=== PATIENT | male | born 1950 | race Caucasian/White ===

== ENCOUNTER 2016-07-15 18:15 | Emergency (ER) | payer OTHER, MEDICARE ==
[2016-07-15] MEDS ORDERED: ASPIRIN 81 MG CHEWABLE CTB ONE (18:17)
[2016-07-15] MEDS ORDERED: NITROGLYCERIN 0.4 MG TAB SL ONE (18:18)
[2016-07-15] MEDS ORDERED: ASPIRIN 81 MG CHEWABLE CTB PO ONE (18:18)
[2016-07-15] MEDS ORDERED: NITROGLYCERIN 0.4 MG TAB SL PRN (18:27)
[2016-07-15 18:30] LABS: BASOPHILS % (AUTO) 1 % (0-3); EOSINOPHILS % (AUTO) 3 % (0-9); HEMATOCRIT 43 % (39-53); MEAN CORPUSCULAR VOLUME 88 fL (80-100); MONOCYTES % (AUTO) 6.6 % (0-12); NEUTROPHILS % (AUTO) 48.4 % (37-80)
[2016-07-15 18:44] LABS: ALT 30 IU/L (14-63); CALCIUM 9.3 mg/dl (8.5-10.1); GLOM FILT RATE 51 mL/min (>60); POTASSIUM 3.9 mMol/L (3.5-5.1); SODIUM 144 mMol/L (136-145)
[2016-07-15] MEDS ORDERED: KETOROLAC TROMETHAMINE 30 MG/ML SOL IV ONE (18:57)
[2016-07-15] MEDS ORDERED: ONDANSETRON HCL 4 MG/2 ML SOL IV ONE (18:57)
[2016-07-15] MEDS ORDERED: ONDANSETRON HCL 4 MG/2 ML SOL ONE (19:02)
[2016-07-15] MEDS ORDERED: KETOROLAC TROMETHAMINE 30 MG/ML SOL ONE (19:02)
[2016-07-15 19:10] VITALS: TEMP 98.7
[2016-07-15] MEDS ORDERED: SODIUM CHLORIDE 0.9% 1000ML 1,000 ML IV ONE (19:15)
[2016-07-15 20:11] VITALS: BP 96/73; PULSE 66; RESP 17; O2SAT 94
== END 2016-07-15 21:06 | disposition home or self-care (01) | DRG 313 ==
LOC: ED 18:15
DX: R07.89 Other chest pain (principal)
CPT/HCPCS: 71010; 80053; 84484; 85025; 93005; 99285; J1885; J2405

== ENCOUNTER 2017-05-27 10:32 | Emergency (ER) | payer OTHER, MEDICARE ==
[2017-05-27 10:53] VITALS: BP 124/79; PULSE 80; RESP 16; TEMP 96.9; O2SAT 95
[2017-05-27] MEDS ORDERED: ACETAMINOPHEN 500 MG 500 MG TAB PO ONE (11:00)
[2017-05-27] MEDS ORDERED: IBUPROFEN 400 MG TAB PO ONE (11:01)
[2017-05-27] MEDS ORDERED: TRAMADOL HYDROCHLORIDE 50 MG TAB PO ONE (11:01)
[2017-05-27] MEDS ORDERED: TRAMADOL HYDROCHLORIDE 50 MG TAB ONE (11:04)
[2017-05-27] MEDS ORDERED: IBUPROFEN 400 MG TAB ONE (11:05)
[2017-05-27] MEDS ORDERED: LIDOCAINE HCL 2% (VISCOUS) 20 ML SOL MT ONE (11:17)
[2017-05-27] MEDS ORDERED: LIDOCAINE HCL 2% (VISCOUS) 20 ML SOL ONE (11:19)
== END 2017-05-27 11:25 | disposition home or self-care (01) | DRG 159 ==
LOC: ED 10:32
DX: K08.89 Other specified disorders of teeth and supporting structures (principal); K04.7 Periapical abscess without sinus
CPT/HCPCS: 99282; A9270-GY

== ENCOUNTER 2017-09-21 10:26 | Emergency (ER) | payer OTHER, MEDICARE ==
[2017-09-21 10:41] VITALS: BP 134/72; PULSE 74; RESP 18; TEMP 97.3; O2SAT 100
[2017-09-21 11:19] LABS: BASOPHILS % (AUTO) 1 % (0-3); EOSINOPHILS % (AUTO) 5 % (0-9); HEMATOCRIT 45 % (39-53); HEMOGLOBIN 14.7 gm/dl (13.5-17.7); LYMPHOCYTES % (AUTO) 36.4 % (10-50); MEAN CORPUSCULAR HEMOGLOBIN 30.5 pg (27.0-32.0); MEAN CORPUSCULAR HGB CONC 32.6 gm/dl (32.0-36.0); MEAN CORPUSCULAR VOLUME 94 fL (80-100); MONOCYTES % (AUTO) 8.1 % (0-12)
== END 2017-09-21 13:05 | disposition home or self-care (01) | DRG 394 ==
LOC: ED 10:26
DX: K64.8 Other hemorrhoids (principal); K62.5 Hemorrhage of anus and rectum; K59.00 Constipation, unspecified
CPT/HCPCS: 36415; 85025; 99282

== ENCOUNTER 2018-07-21 14:59 | Emergency (ER) | payer OTHER ==
[2018-07-21 15:09] VITALS: RESP 20; TEMP 97.4; O2SAT 98
[2018-07-21] MEDS: ONDANSETRON HCL 4 MG/2 ML SOL IV ONE (15:39)
[2018-07-21] MEDS: KETOROLAC TROMETHAMINE 30 MG/ML SOL IV ONE (15:39)
[2018-07-21] MEDS ORDERED: ONDANSETRON HCL 4 MG/2 ML SOL ONE (15:45)
[2018-07-21] MEDS ORDERED: KETOROLAC TROMETHAMINE 30 MG/ML SOL ONE (15:45)
[2018-07-21] MEDS: SODIUM CHLORIDE 0.9% 1000ML 1,000 ML IV ONE (15:45)
[2018-07-21 15:51] LABS: BASOPHILS % (AUTO) 1 % (0-3); EOSINOPHILS % (AUTO) 2 % (0-9); HEMATOCRIT 41 % (39-53); HEMOGLOBIN 13.9 gm/dl (13.5-17.7); LYMPHOCYTES % (AUTO) 21.2 % (10-50); MEAN CORPUSCULAR HEMOGLOBIN 30.9 pg (27.0-32.0); MEAN CORPUSCULAR HGB CONC 33.7 gm/dl (32.0-36.0); MEAN CORPUSCULAR VOLUME 92 fL (80-100); MONOCYTES % (AUTO) 8.2 % (0-12); NEUTROPHILS % (AUTO) 68.2 % (37-80)
[2018-07-21 16:12] LABS: ALBUMIN 3.5 gm/dl (3.4-5.0); BILIRUBIN,TOTAL 0.5 mg/dl (0.2-1.0); CALCIUM 8.4 mg/dl (8.5-10.1); CARBON DIOXIDE 24.8 mEq/L (21-32); CREATININE 1.69 mg/dl (0.80-1.30); POTASSIUM 3.8 mMol/L (3.5-5.1); TOTAL PROTEIN 6.8 gm/dl (6.4-8.2)
[2018-07-21 16:39] LABS: APPEARANCE,URINE Clear; BILIRUBIN,URINE NEGATIVE (NEGATIVE); COLOR,URINE Yellow; GLUCOSE, URINE (UA) NEGATIVE (NEGATIVE); KETONES,URINE NEGATIVE (NEGATIVE); LEUKOCYTE ESTERASE ,URINE NEGATIVE (NEGATIVE); NITRATE,URINE NEGATIVE (NEGATIVE); OCCULT BLOOD,URINE 1+ (NEG-TRACE); PH,URINE 5.5; UROBILINOGEN,URINE 0.2 (0.2-1.0 EU)
[2018-07-21 16:57] LABS: CRYSTALS NEGATIVE (0-3 AVE/HPF); EPITHELIAL CELLS 0-1 (SQUAMOUS); RBC,URINE 0-2 (0-3AV/HPF); WBC,URINE 0-1 (0-5AV/HPF)
[2018-07-21 16:58] LABS: BACTERIA TRACE (< 1+)
[2018-07-21] MEDS ORDERED: SODIUM CHLORIDE 0.9% 1000ML 1,000 ML IV SCH (17:15)
[2018-07-21 19:00] VITALS: BP 123/77; PULSE 77
== END 2018-07-21 18:57 | disposition home or self-care (01) | DRG 694 ==
LOC: ED 14:59
DX: N20.0 Calculus of kidney (principal)
CPT/HCPCS: 36415; 74176; 80053; 81001; 85025; 93005; 96365; 96374; 96375; 99283; 99285; J1885; J2405